=== PATIENT | male | born 1950 | race Caucasian/White ===

== ENCOUNTER → 2020-01-15 08:21 | Outpatient (BNVA) | payer MEDICARE, SELFPAY | PROVIDERS: Visit Provider Family Medicine | DX: I10 Essential (primary) hypertension (principal); R35.1 Nocturia | CPT/HCPCS: 80053; 80061; 82043; 84153; 85025; 87086 ==

== ENCOUNTER → 2020-07-22 08:29 | Outpatient (BNVA) | payer MEDICARE, SELFPAY | PROVIDERS: Visit Provider Family Medicine | DX: I10 Essential (primary) hypertension (principal); M25.50 Pain in unspecified joint; Z91.013 Allergy to seafood | CPT/HCPCS: 80053; 80061; 85025; 85651; 86038; 86140; 86431 ==

== ENCOUNTER → 2020-08-19 08:46 | Outpatient (BNVA) | payer MEDICARE, SELFPAY | PROVIDERS: Visit Provider Family Medicine | DX: E87.6 Hypokalemia (principal); I10 Essential (primary) hypertension | CPT/HCPCS: 80048 ==

== ENCOUNTER → 2021-04-29 09:08 | Outpatient (BNVA) | payer MEDICARE, SELFPAY | PROVIDERS: PCP Family Medicine; Visit Provider Family Medicine | DX: I10 Essential (primary) hypertension (principal) | CPT/HCPCS: 80053 ==

== ENCOUNTER → 2022-09-05 11:10 | Outpatient (BNVA) | payer MEDICARE, SELFPAY | PROVIDERS: PCP Family Medicine; Visit Provider Family Medicine | DX: Z00.00 Encounter for general adult medical examination without abnormal findings (principal); E78.5 Hyperlipidemia, unspecified; M19.90 Unspecified osteoarthritis, unspecified site; R73.9 Hyperglycemia, unspecified | CPT/HCPCS: 80053; 80061; 83036; 85025; 86140 ==

== ENCOUNTER 2023-01-09 07:19 | Outpatient (CLI) | payer MEDICARE, SELFPAY ==
--- NOTE | 2023-01-09 07:45 | US_ITS ---
WS: [id number] ULTRASOUND SOFT TISSUES LEFT groin. HISTORY: K46.9 - Unspecified abdominal hernia without obstruction ... COMPARISON: None available. TECHNIQUE: 2-D and color Doppler imaging is submitted. Benign lymph node in the LEFT groin measures 1.9 x 0.9 cm. Normal fatty hilum. During Valsalva in the region of the LEFT groin there is herniation of omental fat. No peristalsing loops of bowel and no o bstruction identified. IMPRESSION: LEFT inguinal hernia contains fat only. No evidence for incarceration or herniation of GI tract withi n the inguinal canal.
== END 2023-01-09 07:20 | disposition home or self-care (01) ==
LOC: RAD 07:26
PROVIDERS: PCP Family Medicine; Visit Provider Family Medicine
DX: K40.90 Unilateral inguinal hernia, without obstruction or gangrene, not specified as recurrent (principal)
CPT/HCPCS: 76705

== ENCOUNTER → 2023-08-27 12:46 | Outpatient (BNVA) | payer MEDICARE, SELFPAY | PROVIDERS: PCP Family Medicine; Visit Provider Family Medicine | DX: Z13.6 Encounter for screening for cardiovascular disorders (principal); I71.20 Thoracic aortic aneurysm, without rupture, unspecified; I10 Essential (primary) hypertension; E78.5 Hyperlipidemia, unspecified; M19.90 Unspecified osteoarthritis, unspecified site | CPT/HCPCS: 80053; 80061; 85025 ==

== ENCOUNTER → 2024-07-22 10:26 | Outpatient (BNVA) | payer MEDICARE, SELFPAY | PROVIDERS: PCP Family Medicine; Visit Provider Family Medicine | DX: I10 Essential (primary) hypertension (principal); E78.5 Hyperlipidemia, unspecified; M19.90 Unspecified osteoarthritis, unspecified site; Z00.00 Encounter for general adult medical examination without abnormal findings; E55.9 Vitamin D deficiency, unspecified; E03.9 Hypothyroidism, unspecified; L72.3 Sebaceous cyst | CPT/HCPCS: 80053; 80061; 82607; 82652; 84443; 85025; 86140 ==

== ENCOUNTER → 2024-08-01 09:37 | Outpatient (BNVA) | payer MEDICARE, SELFPAY | PROVIDERS: PCP Family Medicine; Referring Provider Family Medicine; Visit Provider Student in an Organized Health Care Education/Training Program | DX: L72.3 Sebaceous cyst (principal) | CPT/HCPCS: 99204 ==

== ENCOUNTER 2024-08-13 06:18 | Day surgery (SDC) | payer MEDICARE, SELFPAY ==
[2024-08-13] VITALS (10 sets, daily range): BP systolic 138–166; BP diastolic 83–105; PULSE 56–70; RESP 10–19; TEMP 36.1–36.2; O2SAT 91–98; BMI 3690.8
[2024-08-13] MEDS: sodium chloride 0.9% 1,000 ML 30 ML IV (06:30)
--- NOTE | 2024-08-13 07:07 | W.PM.OPSUD ---
Surgery/Procedure H&P Update DATE OF PROCEDURE: August 13, 2024 DATE H&P PERFORMED: 08/01/24 H&P UPDATE INFORMATION: I have reviewed H&P completed within last 30 days, I have examined patient prior to procedure and No changes to prior documentation PLANNED PROCEDURE: Operation Date: 08/13/24 07:55 Proposed Procedures p Excision Neck Mass <3cm(Not Applicable) - Lexx Pinzon MD
[2024-08-13] MEDS: ceFAZolin 2,000 mg SDV 2000 MG IVP (07:20)
[2024-08-13] MEDS: lidocaine-epi 1% 20 mL INJ INJECTION (07:29)
--- NOTE | 2024-08-13 07:38 | P.OP_ITS ---
Operative Report Date of procedure: August 13, 2024 Pre-op diagnosis: Left posterior soft tissue mass Post-op diagnosis: same Post-op findings: 2 x 1 cm inclusion cyst Procedure done: Soft tissue mass excision Implants: N/A Specimens removed/disposition: 2 x 1 cm inclusion cyst Pathology: Inclusion cyst sent to pathology Surgeon: Lexx Pinzon MD Hydraulic Specialist: N/A Anesthesia: General Estimated blood loss (mL): 2 Complications: N/A Findings: 2 x 1 cm left posterior cervical soft tissue mass resembling an inclusion cyst Condition: stable Disposition: same day Brief History: 74-year-old male who presented with a left posterior cervical soft tissue mass. Discussed risk and benefits the patient agreed to proceed with soft tissue mass excision. Marked lesion in preop area with patient's guidance. Procedure: After obtaining consent patient was brought into the operating room. Prophylactic antibiotics were administered. SCDs were on and functional. General anesthesia was induced. Patient was then transferred to the operating table in prone position. Extremities were appropriately padded. Left arm was left out. The left posterior neck was prepped and draped in the usual sterile fashion. A 3 cm incision was carried out over the soft tissue mass. Electrocautery was used to dissect around the lesion. Patient lesion was dissected with the capsule intact. It was a 2 x 1 cm soft tissue mass to resemble an inclusion cyst. It was passed off and sent to pathology. Adequate hemostasis was achieved with electrocautery. Local infiltration using 5 cc of 1% lidocaine with epinephrine was used. Deep dermal layer was closed using 3-0 Vicryl. Skin was closed with a combination of vertical mattress sutures and simple sutures using 2-0 nylon. Antibiotic ointment was applied and a sterile dressing was also applied. Patient woke up from anesthesia without any complications.
[2024-08-13] MEDS: neomycin-poly-bacitracin oint 28 gm 3 APPLIC TOPICAL (07:40)
--- NOTE | 2024-08-13 07:55 | P.ANESASSM_ITS ---
Pre-Anesthetic Assessment Height/Weight: Height 15.24 cm Weight 85.729 kg Temp Pulse Resp BP Pulse Ox O2 Del Method O2 Flow Rate 97 F L 59 L 18 150/97 94 Room Air 8 08/13/24 06:27 08/13/24 06:27 08/13/24 06:27 08/13/24 06:27 08/13/24 06:27 08/13/24 06:28 08/13/24 07:49 Preop Diagnosis: soft tissue neck mass Operation Date: 08/13/24 07:55 Proposed Procedures p Excision Neck Mass <3cm(Not Applicable) - Lexx Pinzon MD Familial anesthetic complications: none Was Beta Johnny taken within 24 hours: N/A Was Clonidine taken within 24 hours: N/A Last intake: Intake Last Liquid Date 08/12/24 Last Liquid Time 18:30 Last Solid Date 08/12/24 Last Solid Time 18:30 Social No alcohol and No tobacco Exam alert, oriented x 3, clear to auscultation bilaterally and regular rate & rhythm Airway Mallampati: Class II Dentition: full History/ROS No significant history except as noted Pulmonary None reported CV/HEM Hypertension pt states in 2021 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 This was discussed with Dr Partida and she agrees we can proceed with the scheduled procedure today. None reported Hepatic None reported GI None reported Metabolic None reported Musc/skel None reported Neuropsych None reported Anesthetic Plan ASA status: 2 Anesthesia: Anesthesia Evaluation and General Risk of > 500 ml blood loss (7ml/kg in children): No Medications/Allergies Home Medications ?Medication ?Instructions ?Recorded ?Confirmed ?Last Taken ?Type epinephrine 0.3 mg/0.3 mL 0.3 mg (0.3 mL) IM Q15M PRN 01/01/23 08/12/24 Unknown Rx injection, auto-injector anaphylaxis #2 ea amlodipine 10 mg tablet 10 mg PO DAILY #90 tabs 09/1108/12/24 08/12/24 Rx losartan 50 mg tablet 50 mg PO DAILY blood pressur e #90 09/24/23 08/12/24 08/12/24 Rx tabs tramadol 50 mg tablet 50 mg PO DAILY PRN pain #30 tabs 07/18/24 04/01/25 Unknown Rx celecoxib 100 mg capsule 100 mg PO BID #180 caps 07/1208/12/24 08/12/24 Rx Allergies Allergy/AdvReac Type Severity Reaction Status Date / Time zolpidem (From Ambien) Allergy Unknown ADR-Irritab Verified 08/13/24 06:26 le midazolam (From Versed) Allergy Unknown Verified 08/13/24 06:26 Hemsyja-GIA-NqF Reductase Allergy ADR-Dizzine Verified 08/13/24 06:26 Inhibitor ss meperidine (From Demerol) AdvReac Mild just Verified 08/13/24 06:26 doesn't work shellfish derived AdvReac Mild hives & Verified 08/13/24 06:26 throat closes [facility] Anesthesia Medical History History of basal cell carcinoma Schatzki's ring Last EGD 2016 Essential (primary) hypertension Surgical History H/O knee surgery Left knee History of tonsillectomy Family History Other CAD (coronary artery disease) Cancer IBS (irritable bowel syndrome) Lung disease Stroke Social History Smoking and tobacco/nicotine status: never used tobacco/nicotine Alcohol intake: current Alcohol intake frequency: few times a month Substance/Drug Use: never Data Anesthesia Cardiac Studies: No Data to Display
--- NOTE | 2024-08-13 08:55 | ANE.PACU2 ---
Inpatient post-anesthesia follow up: Airway intact: Yes Vital signs: Temperature 97.2 F Pulse Rate 56 Respiratory Rate 18 Blood Pressure 153/91 Pulse Oximetry 93 Oxygen Delivery Me thod Room Air Oxygen Flow Rate 8 Fraction of Inspir ed Oxygen Hydration adequate: Yes Nausea and vomiting: No Pain level: 1 Mental status: Baseline
== END 2024-08-13 08:58 | disposition home or self-care (01) ==
PROVIDERS: PCP Family Medicine; Visit Provider Student in an Organized Health Care Education/Training Program
PROC: (CPT 21555; principal; 2024-08-13 07:55)
DX: R22.1 Localized swelling, mass and lump, neck (principal); I10 Essential (primary) hypertension; Z79.899 Other long term (current) drug therapy; Z85.828 Personal history of other malignant neoplasm of skin
CPT/HCPCS: 21555; 88307; J0330; J0690; J1100; J2405; J2704; J3010; J3490; J7030; J9999

== ENCOUNTER → 2024-08-22 09:10 | Outpatient (BNVA) | payer MEDICARE, SELFPAY | PROVIDERS: PCP Family Medicine; Visit Provider Student in an Organized Health Care Education/Training Program | DX: Z98.890 Other specified postprocedural states (principal) | CPT/HCPCS: 99024 ==

== ENCOUNTER → 2024-09-02 08:52 | Outpatient (BNVA) | payer MEDICARE, SELFPAY | PROVIDERS: PCP Family Medicine; Visit Provider Thoracic Surgery (Cardiothoracic Vascular Surgery) | DX: I96 Gangrene, not elsewhere classified (principal); T81.31XD Disruption of external operation (surgical) wound, not elsewhere classified, subsequent encounter; Y83.8 Other surgical procedures as the cause of abnormal reaction of the patient, or of later complication, without mention of misadventure at the time of the procedure | CPT/HCPCS: 11042; 99203; A6210 ==

== ENCOUNTER → 2024-09-16 09:36 | Outpatient (BNVA) | payer MEDICARE, SELFPAY | PROVIDERS: PCP Family Medicine; Visit Provider Thoracic Surgery (Cardiothoracic Vascular Surgery) | DX: I96 Gangrene, not elsewhere classified (principal); T81.31XD Disruption of external operation (surgical) wound, not elsewhere classified, subsequent encounter; Y83.8 Other surgical procedures as the cause of abnormal reaction of the patient, or of later complication, without mention of misadventure at the time of the procedure | CPT/HCPCS: 97597; A6021 ==

== ENCOUNTER → 2024-09-23 08:57 | Outpatient (BNVA) | payer MEDICARE, SELFPAY | PROVIDERS: PCP Family Medicine; Visit Provider Thoracic Surgery (Cardiothoracic Vascular Surgery) | DX: I96 Gangrene, not elsewhere classified (principal); T81.31XD Disruption of external operation (surgical) wound, not elsewhere classified, subsequent encounter; Y83.8 Other surgical procedures as the cause of abnormal reaction of the patient, or of later complication, without mention of misadventure at the time of the procedure | CPT/HCPCS: 97597 ==

== ENCOUNTER → 2024-09-30 10:12 | Outpatient (BNVA) | payer MEDICARE, SELFPAY | PROVIDERS: PCP Family Medicine; Visit Provider Thoracic Surgery (Cardiothoracic Vascular Surgery) | DX: I96 Gangrene, not elsewhere classified (principal); T81.31XD Disruption of external operation (surgical) wound, not elsewhere classified, subsequent encounter; Y83.8 Other surgical procedures as the cause of abnormal reaction of the patient, or of later complication, without mention of misadventure at the time of the procedure | CPT/HCPCS: 97597; A6210 ==

== ENCOUNTER → 2024-10-07 10:34 | Outpatient (BNVA) | payer MEDICARE, SELFPAY | PROVIDERS: PCP Family Medicine; Visit Provider Thoracic Surgery (Cardiothoracic Vascular Surgery) | DX: I96 Gangrene, not elsewhere classified (principal); T81.31XD Disruption of external operation (surgical) wound, not elsewhere classified, subsequent encounter; Y83.8 Other surgical procedures as the cause of abnormal reaction of the patient, or of later complication, without mention of misadventure at the time of the procedure | CPT/HCPCS: 97597; A6210 ==

== ENCOUNTER → 2024-10-24 09:28 | Outpatient (BNVA) | payer MEDICARE, SELFPAY | PROVIDERS: PCP Family Medicine; Visit Provider Thoracic Surgery (Cardiothoracic Vascular Surgery) | DX: Z09 Encounter for follow-up examination after completed treatment for conditions other than malignant neoplasm (principal); Z87.2 Personal history of diseases of the skin and subcutaneous tissue | CPT/HCPCS: 99212 ==

== ENCOUNTER → 2024-11-20 15:27 | Outpatient (BNVA) | payer MEDICARE, SELFPAY | PROVIDERS: PCP Family Medicine; Visit Provider Family Medicine | DX: Z12.5 Encounter for screening for malignant neoplasm of prostate (principal); R53.83 Other fatigue | CPT/HCPCS: 82040; 84270; 84403; G0103 ==

== ENCOUNTER 2024-12-02 15:12 | Outpatient (CLI) | payer MEDICARE, SELFPAY ==
--- NOTE | 2024-12-02 15:45 | CT_ITS ---
WS: [id number] CTA THORACIC AORTA WITH AND WITHOUT CONTRAST HISTORY: recheck aneurysm found on screening TECHNIQUE: CTA imaging of the thorax is performed with and without contrast. After noncontrast imaging is performed, CT angiogram is performed during injection of Omnipaque 350; 100 mL IV.. Sagittal and coronal reconstructions, sagittal and coronal MIP imaging is submitted. All CT scans at [facility] use at least one of these dose optimization techniques: automated exposure control; mA and/or kV adjustment per patient size (includes targeted exams where dose is matched to clinical indication); or iterative reconstruction. DLP: 542.04 mGy.cm COMPARISON: None available. Good contrast opacification of the thoracic aorta. There is a very mild atherosclerotic plaque and intimal thickening within the aorta. Mild ectasia of the ascending aorta. Maximum diameter ascending aorta is 3.9 cm. Descending aorta at the level of the jo is 2.8 cm. No true aneurysm. Normal appearance of the aortic root and the sinotubular junction. Great vessels arise normally from the arch. No dissection. No ulcerated plaque. Heart is slightly enlarged. No pericardial or pleural effusions. No pulmonary mass, nodule or pneumonia. No endobronchial lesions. No mediastinal or hilar adenopathy. Normal pulmonary arteries. No filling defects. RIGHT thyroid nodule 11 mm. Small hiatal hernia. No adrenal mass. CT/CT angio chest [id number] IMPRESSION: 1. Ectatic but nonaneurysmal thoracic aorta. Maximum transverse diameter of th e ascending aorta is 3.9 cm. 2. No descending thoracic aortic aneurysm. 3. Mild atherosclerotic disease within the aorta. 4. No pneumonia. 5. No mediastinal or hilar adenopathy. 6. RIGHT thyroid nodule. This can be reevaluated by ultrasound.
[2024-12-02 15:47] LABS: Blood Urea Nitrogen 15 mg/dL (8-23)
[2024-12-02] MEDS: iohexol 350 mg/mL 500 mL Btl (per mL) IV (15:56)
== END 2024-12-02 15:13 | disposition home or self-care (01) ==
LOC: RAD 15:14
PROVIDERS: PCP Family Medicine; Visit Provider Family Medicine
DX: I71.20 Thoracic aortic aneurysm, without rupture, unspecified (principal); I70.0 Atherosclerosis of aorta; E04.1 Nontoxic single thyroid nodule
CPT/HCPCS: 71275; 82565; 84520

== ENCOUNTER 2024-12-15 13:23 | Outpatient (CLI) | payer MEDICARE, SELFPAY ==
--- NOTE | 2024-12-15 14:15 | US_ITS ---
WS: [id number] THYROID ULTRASOUND HISTORY: right thyroid nodule COMPARISON: CT 12/02/2024 Right lobe: 1.9 cm x 2.6 cm x 4.1 cm (w x ap x l). Volume: 10.0 cm3. Enlarged thyroid. Isoechoic nodule with hypoechoic border and a few cystic areas noted in the mid RIGHT thyroid. Thyroid nodule measures 1.6 x 1.2 x 2.0 cm. There is moderate increased vascularity. Left lobe: 1.3 cm x 1.4 cm x 4.2 cm (w x ap x l). Volume: 3.7 cm3. Mildly heterogeneous gland. There are a few tiny cystic nodules which are probably colloid cysts. No dominant nodule. No increased vascularity. Isthmus: 0.3 cm. US/US thyroid [id number] IMPRESSION: TI-RADS 3; mid RIGHT thyroid nodule. Mildly suspicious nodule. Recommend ultras ound follow-up in 1, 3 and 5 years. If this nodule becomes greater than 2.5 cm in diameter biopsy is recommended.
== END 2024-12-15 13:24 | disposition home or self-care (01) ==
PROVIDERS: PCP Family Medicine; Visit Provider Family Medicine
DX: E04.1 Nontoxic single thyroid nodule (principal)
CPT/HCPCS: 76536